=== PATIENT | female | born 1990 | race Caucasian/White ===

== ENCOUNTER → 2016-07-02 | Outpatient (CLI) | payer BC ==
[~2016-07-02] MED LIST: BCPILLS PO; BUPRTAB51 PO; LEVO75TA5 PO; TOPI100T20 PO
[2016-07-02 13:01] LABS: URINE APPEARANCE CLEAR (CLEAR); URINE BILIRUBIN NEG (NEG); URINE COLOR YELLOW; URINE NITRITE NEG (NEG); URINE PH 6.5 (4.5-7.5); URINE SPECIFIC GRAVITY 1.012 (1.000-1.030); UROBILINOGEN NEG (NEG)
[2016-07-02 13:08] LABS: PREG INTERNAL NEGATIVE QC NEG CLEAR BACKGROUND; PREG INTERNAL POSITIVE QC POS CONTROL LINE
[2016-07-02 13:19] LABS: MANUAL MICROSCOPIC REQUIRED? NO; REVIEW REQ? NO
[2016-07-04 15:39] LABS: CHLAMYDIA TRACH RNA*** NOT DETECTED (NOT DETECTED); GC (NEIS GONORRHOEAE)RNA** NOT DETECTED (NOT DETECTED)
== END | disposition home or self-care (01) ==
LOC: C.LABSPEC 12:26
PROVIDERS: ATTEND Physician Assistant
DX: R10.2 Pelvic and perineal pain (principal); R35.0 Frequency of micturition

== ENCOUNTER 2017-05-26 21:55 | Emergency (ER) | payer SELFPAY ==
[~2017-05-26] VITALS: Ht 167.6 cm; Wt 82.8 kg
[~2017-05-26 21:55] MED LIST changes: -BUPRTAB51 PO; -LEVO75TA5 PO; -TOPI100T20 PO
[2017-05-26 22:05] VITALS: TEMP 37.2; Ht 167.6 cm; Wt 82.8 kg
[2017-05-26] MEDS ORDERED: KETOROLAC TROMETHAMINE 30 MG/ML VIAL IV STA (23:23)
[2017-05-26] MEDS ORDERED: SODIUM CHLORIDE 0.9% 1000ML 1,000 ML IV STA (23:23)
[2017-05-26] MEDS ORDERED: DEXAMETHASONE **PF** INJ 10 MG/ML VIAL IV ONE (23:30)
[2017-05-27 00:06] LABS: HEMATOCRIT 34.4 % (37-47); HEMOGLOBIN 11.7 g/dL (12.0-16.0); MEAN CELL VOLUME 91.2 fL (80-100); MEAN PLATELET VOLUME 9.3 fL (7.4-10.4); PLATELET COUNT 244 K/uL (130-400); RED CELL DISTRIBUTION WIDTH CV 13.3 % (11.5-14.5); RED CELL DISTRIBUTION WIDTH SD 44.1 fL (36.4-46.3); WHITE BLOOD COUNT 15.94 K/uL (4.8-10.8)
--- NOTE | 2017-05-27 00:25 | EMERGENCY ROOM VISIT NOTE ---
ED Visit Note First contact with patient: 22:38 CHIEF COMPLAINT: Sore throat HISTORY OF PRESENTING ILLNESS: This is a 26-year-old female who presents to the emergency department with complaint of sore throat for 2 days. She states she has also had some fevers off and on with this, ranging from 100-102. Pain in her throat has been constant, worse with swallowing, 6/10. She has tried Tylenol and ibuprofen for the pain with some relief. She reports associated chills, body aches, and a mild cough. She denies any difficulty swallowing, difficulty breathing or wheezing, chest pain, headaches, dizziness or syncope, abdominal pain, back pain, nausea or vomiting, diarrhea, urinary symptoms, or rash. She denies any recent sick contacts with similar symptoms. She is up-to- date on immunizations. REVIEW OF SYSTEMS: A complete 10 point review of systems was reviewed with the patient with pertinent positives and negatives as per history of present illness. All else were negative. PAST MEDICAL HISTORY: Hypothyroidism, depression SOCIAL HISTORY: Lives at home. Denies tobacco use, alcohol or recreational drug use. ALLERGIES: No known allergies PHYSICAL EXAM: CONSTITUTIONAL: Pleasant and cooperative. No acute distress. Mildly dehydrated , but otherwise well appearing and well nourished. HEENT: Normocephalic, atraumatic. Pupils equal, round and reactive to light, EOMI. TMs normal. Pharynx is erythematous, moderately edematous, with bilateral white exudates. No trismus, no unilateral swelling or uvular deviation. Normal voice. Tacky mucous membranes NECK: Supple, full active range of motion without discomfort. Bilateral anterior cervical adenopathy, tender to palpation. RESPIRATORY: Clear to auscultation bilaterally with no wheezing, crackles, rhonchi or stridor. Equal expansion bilaterally. CARDIOVASCULAR: Regular rate and rhythm with no murmurs, rubs or gallops. Normal peripheral perfusion. No edema. GASTROINTESTINAL: Soft, nontender, nondistended. No palpable masses or HSM. Bowel sounds present in all quadrants. MUSCULOSKELETAL: Full range of motion of all joints without discomfort. INTEGUMENTARY: No rash or other significant dermatologic conditions noted. NEUROLOGIC: Alert and oriented X 4 with normal affect. Cranial nerves II-XII grossly intact. No focal neurologic deficits noted. Drains ED COURSE AND MEDICAL DECISION MAKING: CC: Patient presenting with complaint of sore throat DIFFERENTIAL DIAGNOSIS: Includes, but not limited to pharyngitis, strep throat , mononucleosis, peritonsillar abscess, dehydration, electrolyte abnormalities, viral URI, among others. INTERPRETATION OF LABS: Leukocytosis, no anemia, mild hypokalemia, no other significant electrolyte abnormalities, normal renal function. Rapid strep negative. Monospot negative. MEDICATION RECONCILIATION: I attest that I have personally reviewed the patient 's current medication list. INITIAL VITAL SIGNS REVIEW: I reviewed the patient's initial vital signs and interpret them as follows: T: Afebrile; BP: Normotensive; HR: Tachycardic; RR : Within normal limits; Pulse Ox: Within normal limits on room air. Blood pressure screening: The patient was found to have normal blood pressure on screening and does not require follow-up for repeat blood pressure check. SUMMARY: Patient was evaluated at bedside, history and physical exam performed. Patient is alert and oriented, no acute distress, resting, in the stretcher. Patient has moderate pharyngeal edema, erythema, and exudate, with anterior cervical adenopathy and tenderness. There is no trismus, unilateral swelling or uvular deviation, or muffled voice to suggest peritonsillar abscess. Orders were placed at bedside for labs, rapid strep, Monospot, IV fluids for hydration, IV Decadron and IV Toradol. Patient discussed with Dr. Mcgill, who agrees with my assessment and plan. Labs and imaging reviewed as above, notable for leukocytosis. Mild hypokalemia , this was orally replaced. Negative Monospot, rapid strep negative. Patient reassessed multiple times throughout ED stay, she reports that she is feeling better after fluids and Toradol, tachycardia improving after IV fluids as well. Patient was updated on all results and plan for discharge, she was encouraged to follow closely with her primary care provider Patient was also given strict return precautions should her symptoms worsen, she verbalized understanding. Patient was discharged home in stable condition and ambulatory. Current/Historical Medications Scheduled Control Pills ( Control Pills), 1 TAB PO DAILY Bupropion (Wellbutrin-Xl), 300 MG PO DAILY Levothyroxine Sodium (Levothyroxine Sodium), 75 MCG PO DAILY Topiramate (Topamax), 100 MG PO BID Allergies Coded Allergies: No Known Allergies (Unverified , NONE, 08/31/15) Vital Signs Date Time Temp Pulse Resp B/P (MAP) Pulse Ox O2 Delivery O2 Flow Rate FiO2 05/27/17 01:43 78 18 116/66 98 Room Air 05/26/17 22:07 Room Air 05/26/17 22:05 37.2 100 20 102/62 98 Room Air Laboratory Results 05/26/17 23:45 Red Blood Count 3.77, Mean Corpuscular Volume 91.2, Mean Corpuscular Hemoglobin 31.0, Mean Corpuscular Hemoglobin Concent 34.0, Mean Platelet Volume 9.3, Neutrophils (%) (Auto) 74.8, Lymphocytes (%) (Auto) 13.4, Monocytes (%) (Auto) 11.2, Eosinophils (%) (Auto) 0.2, Basophils (%) (Auto) 0.1, Neutrophils # (Auto ) 11.93, Lymphocytes # (Auto) 2.14, Monocytes # (Auto) 1.78, Eosinophils # (Auto ) 0.03, Basophils # (Auto) 0.02 05/26/17 23:45 Test 05/26/17 23:45 White Blood Count 15.94 K/uL (4.8-10.8) Red Blood Count 3.77 M/uL (4.2-5.4) Hemoglobin 11.7 g/dL (12.0-16.0) Hematocrit 34.4 % (37-47) Mean Corpuscular Volume 91.2 fL (80-100) Mean Corpuscular Hemoglobin 31.0 pg (25-34) Mean Corpuscular Hemoglobin Concent 34.0 g/dl (32-36) Platelet Count 244 K/uL (130-400) Mean Platelet Volume 9.3 fL (7.4-10.4) Neutrophils (%) (Auto) 74.8 % Lymphocytes (%) (Auto) 13.4 % Monocytes (%) (Auto) 11.2 % Eosinophils (%) (Auto) 0.2 % Basophils (%) (Auto) 0.1 % Neutrophils # (Auto) 11.93 K/uL (1.4-6.5) Lymphocytes # (Auto) 2.14 K/uL (1.2-3.4) Monocytes # (Auto) 1.78 K/uL (0.11-0.59) Eosinophils # (Auto) 0.03 K/uL (0-0.5) Basophils # (Auto) 0.02 K/uL (0-0.2) RDW Standard Deviation 44.1 fL (36.4-46.3) RDW Coefficient of Variation 13.3 % (11.5-14.5) Immature Granulocyte % (Auto) 0.3 % Immature Granulocyte # (Auto) 0.04 K/uL (0.00-0.02) Dohle Bodies 1+ Anion Gap 8.0 mmol/L (3-11) Est Creatinine Clear Calc Drug Dose 94.3 ml/min Estimated GFR () 92.3 Estimated GFR (Non- 79.6 BUN/Creatinine Ratio 12.3 (10-20) Calcium Level 8.6 mg/dl (8.5-10.1) Monoscreen NEG (NEG) Medications Administered Medications (Trade) Dose Ordered Sig/Betzaida Route Start Time Stop Time Status Last Admin Dose Admin Sodium Chloride 1,000 ml @ 999 mls/hr Q1H1M STAT IV 05/26/17 23:23 05/27/17 00:23 DC 05/26/17 23:49 999 MLS/HR Dexamethasone Sodium Phosphate (Dexamethasone Inj Pf) 10 mg NOW ONCE IV 05/26/17 23:30 05/26/17 23:31 DC 05/26/17 23:49 10 MG Ketorolac Tromethamine (Toradol Inj) 15 mg NOW STAT IV 05/26/17 23:23 05/26/17 23:25 DC 05/26/17 23:49 15 MG Potassium Chloride (Klor-Con M10) 40 meq NOW STAT PO 05/27/17 00:48 05/27/17 00:52 DC 05/27/17 01:45 40 MEQ Departure Information Impression Primary Impression: Pharyngitis, acute Dispostion Home / Self-Care Condition GOOD Referrals Ashely Foss D.ORivera (PCP) Patient Instructions ED Strep Pharyngitis Bam, My [facility] Additional Instructions You were seen in the emergency department for your sore throat. The results of your rapid strep screen were found to be NEGATIVE. You will be contacted in 48- 72 hrs with the results of your pending strep culture. For pain and fever control, you can use the following huxy-pff-upjdgfn medicines (if >12 yo): - Regular strength (325mg/tab) Tylenol (acetaminophen) 2 tabs every 4-6 hours as needed. Do not exceed 10 tablets in a 24 hour period. Avoid taking more than 3000 mg of Tylenol per day. This includes any other sources of acetaminophen you may take on a regular basis. - Regular strength (200 mg/tab) Advil (ibuprofen) 3 tabs every 6-8 hours as needed. Do not exceed a dose of 2400 mg per day. - For best results, alternate dosing of Tylenol and Advil. In addition to your prescribed medications, you can also use the following home remedies: - Warm salt-water gargles 3 times per day can soothe your throat and help to fight infection. - Warm tea with honey can soothe your throat. - Cepacol throat lozenges and Chloraseptic sprays can be used to help soothe your throat. Return to the emergency department if your symptoms persist or worsen over the next 2-3 days despite treatment course outlined above. Return to the emergency department if you develop the following symptoms of: inability to swallow solids , liquids, or drool; excessive wheezing or inability to catch your breath; or intractable fever or pain. Follow up with your primary care provider in 2-3 days from today's emergency department visit. School Instructions Return To School: 1 day Problem Qualifiers Primary Impression: Pharyngitis, acute Pharyngitis/tonsillitis etiology: unspecified etiology Qualified Codes: J02.9 - Acute pharyngitis, unspecified
[2017-05-27 00:28] LABS: CALCIUM 8.6 mg/dl (8.5-10.1); CREATININE 0.98 mg/dl (0.60-1.20); POTASSIUM 3.1 mmol/L (3.5-5.1)
[2017-05-27 00:46] LABS: BASO % 0.1 %; BASO ABS # 0.02 K/uL (0-0.2); EOS % 0.2 %; EOS ABS # 0.03 K/uL (0-0.5); IG# 0.04 K/uL (0.00-0.02); LYMPH % 13.4 %; LYMPH ABS # 2.14 K/uL (1.2-3.4); MONO % 11.2 %; MONO ABS # 1.78 K/uL (0.11-0.59); NEUT % 74.8 %; NEUT ABS # 11.93 K/uL (1.4-6.5)
[2017-05-27] MEDS ORDERED: POTASSIUM CHLORIDE 10 MEQ TABCR PO STA (00:48)
[2017-05-27 01:43] VITALS: BP 116/66; PULSE 78; O2SAT 98
[2017-05-28] MEDS ORDERED: BUPRTAB51 PO (19:02)
[2017-05-28] MEDS ORDERED: LEVO75TA5 PO (19:02)
[2017-05-28] MEDS ORDERED: TOPI100T20 PO (19:02)
[2017-05-28] MEDS ORDERED: AMOX875T3 PO (20:49)
[2017-05-28] MEDS ORDERED: PRED50TA PO (20:49)
== END 2017-05-27 01:45 | disposition home or self-care (01) ==
LOC: C.EDB 21:56
DX: J02.9 Acute pharyngitis, unspecified (principal); E03.9 Hypothyroidism, unspecified; F32.9 Major depressive disorder, single episode, unspecified; E86.0 Dehydration; E87.6 Hypokalemia; Z79.3 Long term (current) use of hormonal contraceptives; Z79.899 Other long term (current) drug therapy

== ENCOUNTER 2017-05-28 20:09 | Emergency (ER) | payer SELFPAY ==
[~2017-05-28] VITALS: Ht 167.6 cm; Wt 84.9 kg
[~2017-05-28 20:09] MED LIST changes: +BUPRTAB51 PO; +LEVO75TA5 PO; +TOPI100T20 PO
[2017-05-28 20:13] VITALS: TEMP 36.7; Ht 167.6 cm; Wt 84.9 kg
[2017-05-28] MEDS ORDERED: ONDANSETRON 4MG OD TAB PO STA (20:37)
[2017-05-28] MEDS ORDERED: AMOXICILLIN 250 MG CAP PO ONE (20:45)
[2017-05-28] MEDS ORDERED: PRED50TA PO (20:49)
[2017-05-28] MEDS ORDERED: AMOX875T3 PO (20:49)
--- NOTE | 2017-05-28 20:50 | EMERGENCY ROOM VISIT NOTE ---
History First contact with patient: 20:26 Chief Complaint: SORETHROAT Stated Complaint: SORE THROAT,JAW AND EAR PAIN History of Present Illness The patient is a 26 year old female who presents to the Emergency Room with complaints of ongoing sore throat and feverish symptoms for the last 5 days. Patient was seen here a few days ago. She had labs and a rapid strep done. The patient was treated with steroids. Her rapid strep was negative. The patient has tried ibuprofen and Tylenol with minimal relief of her symptoms. She is still able to swallow, but it is painful. The pain radiates up into the left side of her face and left ear. She denies any shortness of breath. No chest pain. Review of Systems 6 system review negative. Please see pertinent positives in the history of present illness section. Past Medical/Surgical History Medical Problems: (1) Asthma, Unspecified (2) Idiopathic Scoliosis Migraines Family History CVA Social History Smoking Status: Never Smoker Alcohol Use: occasionally Drug Use: none Marital Status: Housing Status: lives with family Occupation Status: employed Current/Historical Medications Scheduled Amoxicillin (Amoxil), 875 MG PO BID Bupropion (Wellbutrin-Xl), 300 MG PO DAILY Levothyroxine Sodium (Levothyroxine Sodium), 75 MCG PO DAILY Prednisone (Prednisone), 50 MG PO DAILY Topiramate (Topamax), 100 MG PO BID Physical Exam Vital Signs Date Time Temp Pulse Resp B/P (MAP) Pulse Ox O2 Delivery O2 Flow Rate FiO2 05/28/17 20:59 70 18 122/50 100 05/28/17 20:16 Room Air 05/28/17 20:13 36.7 75 18 118/70 100 Room Air Physical Exam VITALS: Vitals are noted on the nurse's note and reviewed by myself. Vital signs stable. GENERAL: 26-year-old female, in mild discomfort,, SKIN: The skin was without rashes, erythema, edema, or bruising. HEAD: Normocephalic atraumatic. EARS: External auditory canals clear, tympanic membranes pearly gonzales without erythema or effusion bilaterally. EYES: Conjunctivae without injection, sclerae without icterus. Extraocular movements intact. NOSE: Patent, turbinates without inflammation or discharge. No sinus tenderness. MOUTH: Mucous membranes moist. Tonsils are significantly enlarged left greater than right with white exudate. No swelling of the soft palate. Uvula is midline. No trismus or hot potato voice. NECK: Supple without nuchal rigidity. Lymphadenopathy noted in the anterior cervical chain bilaterally. Cervical spine is nontender. No JVD. HEART: Regular rate and rhythm without murmurs gallops or rubs. LUNGS: Clear to auscultation bilaterally without wheezes, rales or rhonchi. No accessory muscle use. MUSCULOSKELETAL: Strength 5/5 throughout. NEURO: Patient was alert and oriented to person place and time. Normal sensation to touch. No focal neurological deficits. Medical Decision & Procedures Medications Administered Medications (Trade) Dose Ordered Sig/Betzaida Route Start Time Stop Time Status Last Admin Dose Admin Prednisone (PredniSONE TAB) 60 mg NOW STAT PO 05/28/17 20:37 05/28/17 20:38 DC 05/28/17 20:51 60 MG Amoxicillin (Amoxil Cap) 500 mg NOW ONCE PO 05/28/17 20:45 05/28/17 20:46 DC 05/28/17 20:51 500 MG Ondansetron HCl (Zofran Odt) 4 mg NOW STAT PO 05/28/17 20:37 05/28/17 20:38 DC 05/28/17 20:51 4 MG Ondansetron HCl (ZOFRAN ODT 4MG Home Pack) 1 homepack UD ONCE PO 05/28/17 21:00 05/28/17 21:01 DC 05/28/17 20:57 1 HOMEPACK ED Course The patient was seen and examined She was medicated with prednisone, amoxicillin and Zofran Discharge instructions were reviewed, and she was discharged in good condition Medical Decision Differential diagnosis: Bacterial tonsillitis, viral tonsillitis, peritonsillar abscess This patient is a 26-year-old female that returns to the emergency department with ongoing throat pain and fever. On exam, she did not have any trismus, hot potato voice or involvement of the soft palate to suggest a peritonsillar abscess. Her past records were reviewed. She is growing group c strep. The patient will be treated with amoxicillin and steroids. She also was complaining of nausea, which is why she was given Zofran. She is tolerating p.o. I believe she is stable to be discharged home with follow-up. She is comfortable with this plan. She will return with worsening symptoms. This chart was completed in part utilizing [employer]) Speech Voice Recognition software. Attempts were made to minimize the grammatical errors, random word insertions, pronoun errors and incomplete sentences. Any formal questions or concerns about the content, text or information contained within the body of this dictation should be directly addressed to the provider for clarification. Medication Reconcilliation Current Medication List: was personally reviewed by me Blood Pressure Screening Patient's blood pressure: Normal blood pressure Impression Primary Impression: Acute bacterial tonsillitis Departure Information Dispostion Home / Self-Care Condition GOOD Prescriptions Amoxicillin (AMOXIL) 875 Mg Tab 875 MG PO BID for 10 Days, #20 TAB Prov: Myla Stout PA-C 05/28/17 Prednisone (Prednisone) 50 Mg Tab 50 MG PO DAILY for 4 Days, #4 TAB Prov: Myla Stout PA-C 05/28/17 Referrals Ashely FossD.O. (PCP) Patient Instructions My [facility] Additional Instructions You had been treated in the emergency department for an ongoing sore throat. Please take the ENTIRE course of antibiotics Please also take the entire course of prednisone Zofran 1 tab under the tongue every 6 hours as needed for nausea Continue to increase fluids over the next several days. Continue to alternate ibuprofen 600 mg with Tylenol 1000 mg every 6 hours as needed for pain Please follow-up with your primary care physician next week for a recheck Do not hesitate to return to the emergency department with any worsening symptoms
[2017-05-28 20:59] VITALS: BP 122/50; PULSE 70; O2SAT 100
[2017-05-28] MEDS ORDERED: ONDANSETRON HOME PACK 4MG OD TAB PO ONE (21:00)
== END 2017-05-28 21:00 | disposition home or self-care (01) ==
LOC: C.EDB 20:10 → C.EDD 21:00
DX: J03.90 Acute tonsillitis, unspecified (principal); J45.909 Unspecified asthma, uncomplicated; M41.20 Other idiopathic scoliosis, site unspecified

== ENCOUNTER 2019-11-09 04:43 | Inpatient (IN) ==
[2019-11-09] MEDS ORDERED: OXYTOCIN 30 UNITS/500 ML BAG IV PRN ×2 (05:16→09:09)
--- NOTE | 2019-11-09 05:16 | Obstetrical Progress Note ---
Date of Service November 09, 2019 Subjective Admit Note 28 F P2002 at 38.6 weeks admitted in labor. course uncomplicated. Was on Valtrex for Herpes supression. Denies any outbreak recently. Covid status unknown at present. GBS is negative. Cervix is 4/80/-2/vertex/soft/intact. Will get rapid Covid and admit in early labor. Results & Data ([facility]) Vital Signs (Past 12 Hours) Vital Signs Pulse BP 11/09/19 05:03 63 130/77
[2019-11-09 05:43] LABS: Hematocrit (blood only) 35.7 % (37-47); Hemoglobin 11.8 g/dL (12.0-16.0); Mean Corpuscular Hemoglobin 31.1 pg (25-34); Mean Corpuscular Volume 94.2 fL (80-100); Mean Platelet Volume 10.1 fL (7.4-10.4); Platelet Count 272 K/uL (130-400); RDW Coefficient of Variation 14.1 % (11.5-14.5); RDW Standard Deviation 48.3 fL (36.4-46.3); Red Blood Count 3.79 M/uL (4.2-5.4); White Blood Count 9.57 K/uL (4.8-10.8)
[2019-11-09 05:54] LABS: Mean Corpuscular Hgb Conc 33.1 g/dL (32-36)
[2019-11-09] MEDS ORDERED: ePHEDrine sulfate 50 MG/ML AMP ONE (06:06)
[2019-11-09] MEDS ORDERED: BUPIVACAINE 0.25% 30 ML VIAL ONE (06:06)
[2019-11-09] MEDS ORDERED: fentaNYL citrate 100 MCG/2 ML VIAL ONE (06:07)
[2019-11-09] MEDS ORDERED: fentaNYL 2MCG/ML ROPIV 1.25MG/ML 100 ML BAG EPI ONE (06:07)
[2019-11-09] MEDS ORDERED: ePHEDrine sulfate 50 MG/ML AMP IV PRN (06:21)
[2019-11-09] MEDS ORDERED: DiphenhydrAMINE HCL 50 MG/ML VIAL IV PRN (06:21)
[2019-11-09] MEDS ORDERED: NALOXONE HCL 0.4 MG/1 ML VIAL/CARP IV PRN (06:21)
[2019-11-09] MEDS ORDERED: fentaNYL 2MCG/ML ROPIV 1.25MG/ML 100 ML BAG EPI PRN (06:21)
[2019-11-09] MEDS ORDERED: ONDANSETRON INJ 2 MG/ML 2 ML VIAL IV PRN (06:21)
[2019-11-09] MEDS ORDERED: NALOXONE HCL 1 MG in SODIUM CHLORIDE 0.9% 1000ML 1,000 ML IV PRN (06:21)
--- NOTE | 2019-11-09 06:24 | Anesthesiology Consultation ---
Date of Service November 09, 2019 Assessment & Plan (1) Encounter for pre-operative examination: Chart Review Chart Review: Patient NOT seen in Pre Admission Testing and Acceptable Risk for Labor Epidural pt had covid in july. retested upon admission was negative. Consults Requested none History Height/Weight Height: 5 ft 6 in Weight: 99.337 kg Allergies Allergy/AdvReac Type Severity Reaction Status Date / Time No Known Allergies Allergy NONE Verified 04/16/19 11:02 Medications Home Medications Medication Instructions Recorded Confirmed Last Taken PNV cmb#95-ferrous fumarate-FA 1 tab PO DAILY 03/23/19 04/16/19 04/15/19 12:00 [] sertraline 25 mg PO DAILY 03/23/19 04/16/19 Unknown ondansetron HCl 4 mg PO UD 04/16/19 04/16/19 04/15/19 Active Medications Generic Name Dose Route Start Last Admin Trade Name Freq PRN Reason Stop Dose Admin Lactated Ringer's 1,000 mls @ 125 mls/hr 11/09/19 05:16 11/09/19 06:28 Lr IV 11/11/19 05:15 125 mls/hr .Q8H PRN Administration L&D Protocol Protocol Past Medical History Medical History Bleeding after intercourse Common migraine without aura H/O varicella History of ovarian cyst Exercise / Class Metabolic Activity II 4-5 Yardwork/Stairs/Walk up hill Past Family History Family History Grandmother (Maternal) Dyslipidemia Hypertension Mother Stroke Sister Depression Other Diabetes Denies family history of Ovarian cancer Breast cancer Colorectal cancer Past Surgical History Surgical History S/P tooth extraction Past Anesthesia History No Hx of Anesthesia Complications and No Family Hx of Anesthesia Complications History of PONV No Hx of PONV and No Hx of Motion Sickness Social History Smoking Status: Never smoker Do You Dip or Chew Tobacco: No Hx Alcohol Use: No Hx Substance Use: No substance use type: does not use Physical Exam Vital Signs Last Vital Signs Temp 36.4 C L 11/09/19 05:29 Pulse 58 L 11/09/19 06:42 Resp 20 11/09/19 05:29 BP 97/52 L 11/09/19 06:42 Pulse Ox 100 11/09/19 06:40 Testing Laboratory Results 11/09/19 05:31
[2019-11-09] MEDS: LACTATED RINGER'S 1,000 ML IV PRN ×2 (06:27→06:28)
--- NOTE | 2019-11-09 08:16 | Obstetrical Progress Note ---
Date of Service November 09, 2019 Assessment & Plan Admission and Anticipated Discharge Date Admission Date: November 09, 2019 Subjective Patient is seen and examined. Patient is a 28-year-old -0-0-2 at 38 weeks and 6 days of gestation was admitted this morning by Dr. Barroso in active labor. She received epidural for pain and she is now comfortable. Her was complicated by genital herpes diagnosed at 11weeks and treated. She has been on Valtrex for for suppression for the last 3 weeks. She denies any symptoms, she denies blisters/lesions, burning or irritation. GBS negative, coronavirus negative. Vaginal exam, cervix is fully dilated 100% effaced, bulging large bag, AROM, clear fluid and head at +1 station heart rate category 1. Plan to start pushing when she feels pressure. Continue to monitor. Results & Data ([facility]) Vital Signs (Past 12 Hours) Vital Signs Temp Pulse Resp BP Pulse Ox 11/09/19 08:10 75 99 11/09/19 08:07 68 131/83 11/09/19 08:05 64 100 11/09/19 08:00 69 100 11/09/19 07:57 59 L 121/64 11/09/19 07:55 58 L 100 11/09/19 07:50 68 100 11/09/19 07:45 64 136/71 100 11/09/19 07:40 63 100 11/09/19 07:35 70 122/72 99 11/09/19 07:30 67 100 11/09/19 07:26 63 134/69 11/09/19 07:25 65 99 11/09/19 07:20 76 98 11/09/19 07:15 67 98 11/09/19 07:14 67 127/94 11/09/19 07:12 75 127/83 11/09/19 07:10 80 126/72 99 11/09/19 07:08 73 136/65 11/09/19 07:07 72 135/64 11/09/19 07:05 66 98 11/09/19 07:04 65 131/62 11/09/19 07:02 67 132/56 L 11/09/19 07:00 73 97 11/09/19 06:59 64 124/68 11/09/19 06:58 64 127/68 11/09/19 06:56 67 125/65 11/09/19 06:55 64 97 11/09/19 06:53 67 120/65 11/09/19 06:52 71 116/62 11/09/19 06:50 73 97 11/09/19 06:49 70 114/60 11/09/19 06:46 62 130/67 11/09/19 06:45 54 L 96 11/09/19 06:42 58 L 97/52 L 11/09/19 06:41 67 99/55 L 11/09/19 06:40 117 H 100 11/09/19 06:37 61 93 11/09/19 06:35 64 100 11/09/19 06:31 79 132/77 11/09/19 06:30 69 99 11/09/19 06:25 68 97 11/09/19 06:20 67 98 11/09/19 06:15 67 98 11/09/19 05:29 36.4 C L 20 130/77 11/09/19 05:03 63 130/77
[2019-11-09] MEDS ORDERED: HYDROCORTISONE ACETATE 25 MG SUPP PR PRN (09:09)
[2019-11-09] MEDS ORDERED: SUPERCREAM 0.870% 15 GM JAR EXT PRN (09:09)
[2019-11-09] MEDS ORDERED: MEASLES, MUMPS & RUBELLA VIRUS VIAL SQ ONE (09:09)
[2019-11-09] MEDS ORDERED: ACETAMINOPHEN 325 MG TAB PO PRN (09:09)
[2019-11-09] MEDS ORDERED: bisacodyL 10 MG SUPP PR PRN (09:09)
[2019-11-09] MEDS ORDERED: DIPHTHERIA/TETANUS/PERTUSSIS 0.5 ML SYR/VIAL IM ONE (09:09)
[2019-11-09] MEDS ORDERED: BENZOCAINE 20% AER SPR 82.5 GM CAN EXT PRN (09:09)
[2019-11-09] MEDS ORDERED: CEFAZOLIN 2000MG 2,000 MG/15 ML SYR IV ONE (09:15)
--- NOTE | 2019-11-09 09:16 | Anesthesia Procedure Note ---
Date of Service November 09, 2019 Anesthesia Post Epidural Note Vital Signs Vital Signs: Temp Pulse Resp BP Pulse Ox 36.4 C L 70 20 145/66 H 100 11/09/19 05:29 11/09/19 09:05 11/09/19 05:29 11/09/19 09:05 11/09/19 08:50 Notes Mental Status: alert / awake / arousable and participated in evaluation Nausea / Vomiting: adequately controlled Pain: adequately controlled Airway Patency, RR, SpO2: stable & adequate BP & HR: stable & adequate Hydration State: stable & adequate Neuraxial Anesthesia: was administered and sensory block is resolving Anesthetic Complications: no major complications apparent and Pt Satisfied with anesthetic care Epidural: Removed without complications and With tip intact
--- NOTE | 2019-11-09 10:46 | Delivery Summary ---
DATE OF OPERATION: 11/09/2019 TIME: 8:50 a.m. DETAILS OF DELIVERY: The patient was found to be fully dilated and desired to push. She pushed through only 2 contractions and delivered the head with no difficulty and then shoulders came right after the head and baby was handed off to the mother where mouth and nose were suctioned. Cord was clamped x2 and cut at 1 minute delay. Cord blood was obtained. Vagina and perineum were checked for lacerations. They were intact. No lacerations were found. Then the placenta was found to be in the vagina, delivered spontaneous as intact and complete. Uterus was explored and found to have irregular surface on the anterior wall suggesting either retained membranes or placental tissue Then with a boom curette the anterior uterine wall was curetted gently and cleaned off. Small pieces of membranes were obtained and the rest of the uterine cavity was felt to be clean and empty. Fundus was firm. EBL was 200 mL. Mom and baby tolerated the procedure well. Sponge, lap, instrument count was correct x2. Baby was a viable female , Apgars 8/9, weight is 3259 gr. No complications happened and I was present during whole procedure. I attest to the content of the Intraoperative Record and any orders documented therein. Any exceptions are noted below. SUSAND
[2019-11-09] MEDS: IBUPROFEN 600 MG TAB PO PRN ×2 (17:40→21:12)
[2019-11-09] MEDS: DOCUSATE SODIUM 100 MG CAP PO SCH (21:12)
[2019-11-09] MEDS ORDERED: SERTRALINE HCL 50 MG TABLET PO ONE (21:43)
[2019-11-10 05:58] LABS: Hematocrit (blood only) 31.1 % (37-47); Hemoglobin 10.3 g/dL (12.0-16.0); Mean Corpuscular Hemoglobin 30.8 pg (25-34); Mean Corpuscular Hgb Conc 33.1 g/dL (32-36); Mean Corpuscular Volume 93.1 fL (80-100); Mean Platelet Volume 9.7 fL (7.4-10.4); Platelet Count 213 K/uL (130-400); RDW Coefficient of Variation 14.1 % (11.5-14.5); Red Blood Count 3.34 M/uL (4.2-5.4); White Blood Count 11.04 K/uL (4.8-10.8)
[2019-11-10] MEDS: IBUPROFEN 600 MG TAB PO PRN ×2 (06:33→15:59)
[2019-11-10] MEDS: DOCUSATE SODIUM 100 MG CAP PO SCH ×2 (08:17→21:00)
[2019-11-10] MEDS: FERROUS SULFATE 325 MG TAB PO SCH (08:17)
[2019-11-10] MEDS: PRENATAL VITAMIN 1 TAB PO SCH (08:17)
--- NOTE | 2019-11-10 11:45 | Obstetrical Progress Note ---
Date of Service November 10, 2019 Assessment & Plan (1) Normal course: PPD #1 pt doing well anticipate disch tomorrow Subjective Ambulation: ambulating normally Voiding: no voiding problems Passing Gas:: Yes Diet Tolerance:: regular diet Lochia:: Small Feeding Type:: breast feeding Review of Systems All systems reviewed & are unremarkable except as noted in HPI & below Physical Exam Constitutional WD/WN, vitals as above well developed and well nourished Eyes PERRL, conjunctivae normal, anicteric sclerae Neck trachea midline, no thyromegaly Respiratory normal respiratory effort, lungs clear to auscultation Auscultation: no crackles, no rales and no wheezes Cardiovascular RRR, no murmur, no edema Gastrointestinal (Abdomen) normal bowel sounds, soft, nontender, no hepatosplenomegaly Uterus is below umbilicus Musculoskeletal no cyanosis or clubbing, extremities motor strength 5/5 Skin no rashes, warm and dry Neurologic patellar DTR's 2+ bilat, sensation intact Psychiatric A+Ox3, euthymic affect Genitourinary normal external appearance Results & Data ([facility]) Vital Signs (Past 12 Hours) Vital Signs Temp Pulse Resp BP Pulse Ox 11/10/19 07:45 36.5 C 65 18 112/70 98 11/10/19 03:25 36.6 C 58 L 18 113/71 98
[2019-11-10] MEDS ORDERED: bisacodyL 5 MG TABEC PO SCH (20:00)
[2019-11-10] MEDS ORDERED: SERTRALINE HCL 50 MG TABLET PO ONE (21:00)
[2019-11-11 06:10] LABS: Hematocrit (blood only) 31.7 % (37-47); Hemoglobin 10.4 g/dL (12.0-16.0)
[2019-11-11] MEDS: IBUPROFEN 600 MG TAB PO PRN (08:01)
[2019-11-11] MEDS: FERROUS SULFATE 325 MG TAB PO SCH (08:01)
[2019-11-11] MEDS: DOCUSATE SODIUM 100 MG CAP PO SCH (08:01)
[2019-11-11] MEDS: PRENATAL VITAMIN 1 TAB PO SCH (08:01)
--- NOTE | 2019-11-11 11:26 | Obstetrical Progress Note ---
Date of Service November 11, 2019 Assessment & Plan (1) Normal course: PPD #2 pt doing well disch home with instructions Subjective Ambulation: ambulating normally Voiding: no voiding problems Passing Gas:: Yes Diet Tolerance:: regular diet Lochia:: Small Feeding Type:: breast feeding Review of Systems All systems reviewed & are unremarkable except as noted in HPI & below Physical Exam Constitutional WD/WN, vitals as above well developed and well nourished Eyes PERRL, conjunctivae normal, anicteric sclerae Neck trachea midline, no thyromegaly Respiratory normal respiratory effort, lungs clear to auscultation Auscultation: no crackles, no rales and no wheezes Cardiovascular RRR, no murmur, no edema Gastrointestinal (Abdomen) normal bowel sounds, soft, nontender, no hepatosplenomegaly Uterus is below umbilicus Musculoskeletal no cyanosis or clubbing, extremities motor strength 5/5 Skin no rashes, warm and dry Neurologic patellar DTR's 2+ bilat, sensation intact Psychiatric A+Ox3, euthymic affect Genitourinary normal external appearance Results & Data ([facility]) Vital Signs (Past 12 Hours) Vital Signs Temp Pulse Resp BP 11/11/19 08:15 36.6 C 66 20 121/75 11/11/19 00:00 37.0 C 80 18 122/80
== END 2019-11-11 12:15 | disposition home or self-care (01) | DRG 807 ==
LOC: OPB 04:43 → 4S1 04:58 → 4S2 14:15